=== PATIENT | female | born 1975 | race Caucasian/White ===

== ENCOUNTER → 2020-10-23 | Outpatient (CLI) | payer OTHER | LOC: HEART 5 10-17 13:30 | DX: R00.2 Palpitations (principal) ==

== ENCOUNTER → 2020-11-01 | Outpatient (CLI) | payer OTHER | LOC: EXRD 10:15 | DX: R74.8 Abnormal levels of other serum enzymes (principal); R93.2 Abnormal findings on diagnostic imaging of liver and biliary tract | CPT/HCPCS: 76705 ==

== ENCOUNTER → 2021-02-18 | Day surgery (SDC) | payer OTHER ==
[~2021-02-18] MED LIST: CAMILA0.35 MG PO; CLARITIN10 M2 PO; CRESTOR 10 MG T10 MG PO; INDERAL TAB 4040 MG PO; LEVOTHYROXINE50 MC1 PO; LUMIGAN 0.01%2.5 ML EYEBOTH; OMEPRAZOLE20 M1 PO; ZOLOFT50 MG PO
== END | disposition home or self-care (01) ==
LOC: OR 07:19
DX: K29.50 Unspecified chronic gastritis without bleeding (principal); D50.9 Iron deficiency anemia, unspecified; K76.6 Portal hypertension; K31.89 Other diseases of stomach and duodenum; K57.30 Diverticulosis of large intestine without perforation or abscess without bleeding; K64.1 Second degree hemorrhoids; I10 Essential (primary) hypertension; E78.5 Hyperlipidemia, unspecified; K21.9 Gastro-esophageal reflux disease without esophagitis; F41.9 Anxiety disorder, unspecified; E03.9 Hypothyroidism, unspecified; E78.00 Pure hypercholesterolemia, unspecified; Z88.0 Allergy status to penicillin; Z79.899 Other long term (current) drug therapy
CPT/HCPCS: 84703; J2704; J7040

== ENCOUNTER → 2021-03-26 | Outpatient (CLI) | payer OTHER | LOC: LAB 08:53 | DX: R10.13 Epigastric pain (principal) | CPT/HCPCS: 36415; 80076; 82150; 83690 ==